=== PATIENT | male | born 1975 | race Caucasian/White ===

== ENCOUNTER → 2022-09-30 | Outpatient (CLI) | payer OTHER, SELFPAY ==
--- NOTE | 2022-09-30 12:00 | NEURO ---
NCS and/or EMG Patient Report Ordering Doctor: Joseph Saavedra DATE OF SERVICE: 09/30/22 Indication: Intermittent sensory symptoms, largely occurring at night. Occasional muscle twitches and cramps. History of prior lumbar disc disease. Findings: Nerve conduction studies were performed in the right and left lower extremity. The right peroneal motor study recording the extensor digitorum brevis showed a normal amplitude, normal distal latency and normal conduction velocity. No conduction block or focal slowing was present across the fibular neck. The right tibial motor study recording the abductor hallucis brevis showed a normal amplitude, normal distal latency and normal conduction velocity. The right sural sensory response showed a normal amplitude and conduction velocity. The right superficial peroneal sensory response showed a normal amplitude and conduction velocity. The left peroneal motor study recording the extensor digitorum brevis showed a normal amplitude, normal distal latency and normal conduction velocity. No conduction block or focal slowing was present across the fibular neck. The left tibial motor study recording the abductor hallucis brevis showed a normal amplitude, normal distal latency and normal conduction velocity. The left sural sensory response showed a normal amplitude and conduction velocity. The left superficial peroneal sensory response showed a normal amplitude and conduction velocity. Needle EMG of the left lower extremity and lumbar paraspinal muscles was performed. No denervation was present in any muscle. All motor unit morphology, activation and recruitment patterns were normal. Needle EMG of the right lower extremity was omitted given the symmetry of symptoms and paucity of findings on the left. Impression: This is a normal study. There is no electrophysiologic evidence of peripheral neuropathy of either the right or left lower extremity. In addition, there is no electrophysiologic evidence of lumbosacral radiculopathy or plexopathy in the left lower extremity. Leonard Ba D.O. Multi Select Codes Neurology Neurology Interp Codes: 23876-59 Musc test done w/n test comp (interp) and 72723-02 Nrv cndj test 7-8 studies (interp)
== END | disposition home or self-care (01) ==
PROVIDERS: PCP Family Medicine; Referring Provider Physician Assistant; Visit Provider Physician Assistant
DX: M62.838 Other muscle spasm (principal); R29.2 Abnormal reflex; R25.3 Fasciculation
CPT/HCPCS: 95886; 95910

== ENCOUNTER → 2024-05-31 | Outpatient (CLI) | payer OTHER, SELFPAY ==
--- NOTE | 2024-05-31 12:49 | STE_ITS ---
Reason For Study: ARRHYTHMIA-OTHER Stress Results Protocol: Marco Protocol Maximum Predicted HR: 170 bpm Target HR: 145 bpm % Maximum Predicted HR: 108 % DurationHeart Rate Stage (mm:ss) (bpm) BP BASELINE 85 122/82 STAGE 1 3:00 107 130/82 STAGE 2 3:00 121 136/82 STAGE 3 3:00 151 160/60 STAGE 4 1:40 184 / RECOVERY 104 140/82 Stress Duration: 10:40 mm:ss Maximum Stress HR: 184 bpm Baseline Echocardiogram Findings The estimated ejection fraction is 60 %. Postexercise EF is 70%. Stress Echo Wall motion Data Resting WM Intermediate WM Stress WM Resting Wall Motion Wall Motion Stress No regional wall motion No regional wall motion abnormalities noted. abnormalities noted. EKG Data Normal sinus rhythm, occasional PVCs. Sinus tachycardia, no significant ischemic ST-T changes. Symptoms with Stress The patient experinced No chest pain . ECHO/Stress Test Echo w/o Contrast Interpretation Summary The estimated ejection fraction is 60 %. Exercise stress test is negative for exercise-induced chest pain or EKG or echo cardiographic changes of ischemia. Functional capacity is excellent for age Ordering Physician: Denny Mcmullen Referring Physician: Denny Mcmullen Performed By: Carlitos Zapata RCS
== END | disposition home or self-care (01) ==
PROVIDERS: PCP Family Medicine; Referring Provider Internal Medicine Cardiovascular Disease; Visit Provider Internal Medicine Cardiovascular Disease
DX: I49.9 Cardiac arrhythmia, unspecified (principal)
CPT/HCPCS: 93017; 93350